=== PATIENT | male | born 1950 | race Caucasian/White ===

== ENCOUNTER → 2017-03-06 17:30 | Outpatient (CLI) | payer MEDICARE | END | disposition home or self-care (01) | LOC: D.LABREF 17:30 | DX: M17.11 Unilateral primary osteoarthritis, right knee (principal); Z11.8 Encounter for screening for other infectious and parasitic diseases ==

== ENCOUNTER 2017-04-05 09:30 | Inpatient (IN) | payer MEDICARE ==
[~2017-04-05] VITALS: Ht 172.7 cm; Wt 102.3 kg
[~2017-04-05 09:30] MED LIST: BAYER CHEWABLE81 MG PO; COREG6.25 MG PO; FELDENE20 MG PO; GLUCOPHAGE1000 MG PO; GLUCOTROL 5 MG T5 MG PO; HYDROCODONE-APA1 TAB PO; LIPITOR80 MG PO; LISINOPRIL10 MG PO; NAPROSYN500 MG PO; NITROSTAT0.4 MG SL; PLAVIX75 MG PO; ZOLOFT25 MG PO
[2017-04-05 09:37] LABS: BASOPHILS 0.6 % (0-2); EOSINOPHILS 3.6 % (0-7); HEMATOCRIT 39.6 % (42.0-54.0); HEMOGLOBIN 13.6 g/dL (13.5-17.5); IMMATURE GRANULOCYTES 0.3 % (0-5); LYMPHOCYTES 24.3 % (15-50); MCHC 34.3 g/dL (31.0-37.0); MCV 87.4 fL (80.0-100.0); MEAN PLATELET VOLUME 11.6 fL (7.4-10.4); NEUTROPHILS 63.2 % (40-80); PLATELET COUNT 164 10x3/uL (130-400); RBC 4.53 10x6/uL (4.20-6.10); RDW 13.4 % (11.5-14.5); WBC 6.8 10x3/uL (4.8-10.8)
[2017-04-05 09:48] LABS: CALC OSMOLALITY 285 mosm/kg (275-300); CALCIUM 9.6 mg/dL (8.5-10.1); CARBON DIOXIDE 30.1 mmol/L (21.0-32.0); CHLORIDE - SERUM 104 mmol/L (98-107); CREATININE - SERUM 0.9 mg/dL (0.6-1.3); GLUCOSE 167 mg/dL (74-106); SODIUM 140 mmol/L (136-145); UREA NITROGEN 20 mg/dL (7-18); eGFR NON AFRICAN AMERICAN 89 mL/min (90-120)
[2017-04-05 09:50] LABS: APTT 30.7 SECONDS (22.8-39.4); INR 1.01 (0.85-1.17); PROTIME 13.1 SECONDS (11.6-15.0)
[2017-04-05 11:14] LABS: APPEARANCE CLEAR (CLEAR); COLOR YELLOW (YELLOW); LEUKOCYTE ESTERASE NEGATIVE (NEGATIVE); NITRITE NEGATIVE (NEGATIVE); PROTEIN NEGATIVE (NEGATIVE)
[2017-04-05 11:15] LABS: BILIRUBIN NEGATIVE (NEGATIVE); GLUCOSE 1000 mg/dL (NEGATIVE); KETONE NEGATIVE (NEGATIVE); UROBILINOGEN NORMAL (NORMAL)
[2017-04-09] VITALS (10 sets, daily range): BP systolic 81–136; BP diastolic 42–82; BMI 34.2
--- NOTE | 2017-04-09 10:39 | NUR ---
PT REC'D FROM RECOVERY ROOM VIA BED, ACCOMPANIED BY PACU NURSETRENT. DROWSY, BUT EASILY AROUSED. DILAUDID DISTILLERY WORKER GENERAL INITIATED, PT AND INSTURCTED ON USE. NO QUESTIONS OR CONCERNS VOICED AT THIS TIME. VSS. 2L O2 VIA NC. WILL TRY TO WEAN OFF OF THIS. LUNG SOUNDS CLEAR AND EQUAL BILAT. HEART RATE AND RHYTHM REGULAR. SINUS HOSSEIN AT 50 VIA CONT. SPO2. DRESSING TO R KNEE CDI. SCD TO L LEG ON AND WORKING. URINAL AND WATER PROVIDED. J LOOP TO PIV IN L HAND CHANGED. PATENT AND NO SIGNS OF REDNESS OR SWELLING. BED LOW, CALL IN REACH, DENIES NEEDS. CPOC.
--- NOTE | 2017-04-09 18:11 | NUR ---
CPM ON TO R LEG AT THIS TIME.
--- NOTE | 2017-04-09 19:00 | NUR ---
PATIENT SLEEPING ON CPM. HOB 20 DEGREES. RR EVEN AND UNLABORED. 0 S/S OF DISTRESS. IV TO LEFT HAND PATENT WITH NO REDNESS OR SWELLING. DRESSING TO RIGHT KNEE CDI. B/A ON PER ORTHO PROTOCOL. SRX2. BED LOW. CALL LIGHT WITHIN REACH.
[2017-04-10 04:00] VITALS: BP 108/54
[2017-04-10 06:16] LABS: HEMATOCRIT 36.7 % (42.0-54.0); HEMOGLOBIN 12.3 g/dL (13.5-17.5); MCH 29.8 pg (26.0-34.0); MCHC 33.5 g/dL (31.0-37.0); MCV 88.9 fL (80.0-100.0); MEAN PLATELET VOLUME 12.1 fL (7.4-10.4); RBC 4.13 10x6/uL (4.20-6.10); WBC 9.7 10x3/uL (4.8-10.8)
[2017-04-10 07:18] VITALS: Ht 172.7 cm; Wt 102.3 kg
--- NOTE | 2017-04-10 07:40 | NUR ---
PT RESTING IN BED WITH AT BEDSIDE. CPM TAKEN OFF BRIEFLY SO THAT PT COULD URINATE AND THEN PLACED BACK ON. TOLD PT THAT CPM CAN COME OFF AT 0845. NO QUESTIONS OR CONCERNS VOICED AT THIS TIME. +2 PEDAL PULSES BILAT. BRISK CAP REFILL TO TOES ON RLE. DRESSING TO R KNEE CDI. NO CURRENT COMPLAINTS OF PAIN. BED LOW, CALL LIGHT IN REACH, DENIES NEEDS. CPOC.
[2017-04-10 08:34] VITALS: BP 126/64
[2017-04-10 12:06] VITALS: BP 128/68
--- NOTE | 2017-04-10 13:54 | NUR ---
* Is the patient Alert and Oriented? Yes 0 * How many steps to enter\exit or inside your home? 2 0 * PCP RIGOBERTO 0 * Pharmacy [facility] 0 * Preadmission Environment Home with Family 0 * ADLs Independent 0 * Equipment None 0 * List name and contact numbers for known caregivers / representatives who currently or will assist patient after discharge: EULA () [phone] 0 Patient Name: DAPHNE BURKETT Admission Status: Elective Accout number: [id number] Admission Date: 04-09-2017 : 1950 Admission Diagnosis:UNILATERAL PRIMARY OSTEOARTHRITIS, RIGHT KNEE Attending: JOSELYN Current LOS: 1 Anticipated DC Date: Planned Disposition: Primary Insurance: [employer] CHOICE PPO [facility] Discharge Planning Comments: CM met with patient and (Talia) to assess discharge planning needs. Patient states that his discharge plan is to return home with his , who will drive him home. He plans to do out patient PT in [place]. I called Priya at [facility] for DME equipment. states that their toilet is elevated already and that he has 2 stairs to enter his home. CM will continue to follow and assist as needed. PCP: Rigoberto Pharmacy: [facility] () [phone] Manager Concrete: Jazmyn Gamez * Community resources currently utilized None 0 * Additional services required to return to the preadmission environment? No 0 * Can the patient safely return to the preadmission environment? Yes 0 * Has this patient been hospitalized within the prior 30 days at any hospital? No 0 Grand Total: 0
--- NOTE | 2017-04-10 15:18 | NUR ---
SEAN spoke with [facility] and they do not take [employer] insurance. I called [facility] [phone] spoke with Etta and they accept [employer]. Order and information faxed to Etta for a CMP and walker. I also called [facility] to set up OP PT and there was not an answer, I left a message for them to call me back. I will be waiting for that call and set up outpatient PT.
--- NOTE | 2017-04-10 17:19 | NUR ---
CPM ON AT THIS TIME. PAIN MEDICATION ADMINISTERED PER KASSY THRASHER. APPRECIATE THIS. TOLERATING WELL. BED LOW, CALL LIGHT IN REACH, DENIES NEEDS. CPOC.
[2017-04-10 19:00] VITALS: BP 105/55
--- NOTE | 2017-04-10 20:00 | NUR ---
TOOK PATIENT OFF OF CPM WITH GHISLAINE MORSE. ADMINISTERED MEDS PER ORDERS. PATIENT DENIES OTHER NEEDS AT THIS TIME. BED IN LOWEST POSITION AND CALL LIGHT WITHIN REACH. ENCOURAGED THE PATIENT TO CALL IF HE HAS FURTHER NEEDS.
[2017-04-11 04:00] VITALS: BP 162/40
[2017-04-11 05:24] LABS: HEMOGLOBIN 11.8 g/dL (13.5-17.5); MCH 29.6 pg (26.0-34.0); MCHC 33.7 g/dL (31.0-37.0); MCV 87.7 fL (80.0-100.0); MEAN PLATELET VOLUME 11.9 fL (7.4-10.4); RBC 3.99 10x6/uL (4.20-6.10); RDW 13.6 % (11.5-14.5); WBC 7.4 10x3/uL (4.8-10.8)
--- NOTE | 2017-04-11 07:54 | NUR ---
PT REC'D FROM KASSY ALEGRE. RESTING IN BED. GHISLAINE BARRON, AT BEDSIDE OBTAINING VS. VSS. CPM TO R LEG AT 40 DEGREES CURRENTLY. NO COMPLAINTS OF PAIN. +2 PEDAL PULSES BILAT. BED LOW, CALL LIGHT IN REACH, DENIES NEEDS. CPOC.
[2017-04-11 08:44] VITALS: BP 124/56
--- NOTE | 2017-04-11 09:02 | NUR ---
Spoke with Etta at [facility] and she stated that she will deliver the patients DME needs to the hospital today.
--- NOTE | 2017-04-11 12:30 | NUR ---
PT SITTING UP IN CHAIR WITH SPOUSE AT SIDE. PT HAS NO VISABLE SIGNS OF PAIN OR DISCOMFORT. CALL LIGHT WITHIN REACH, WILL CONTINUE TO MONITOR.
--- NOTE | 2017-04-11 13:20 | NUR ---
CM met with patient to make sure that the walker was delivered. Walker was delivered and family requesting a shower chair. I called Etta at [facility] to see if insurance would pay for one, she stated that they will not. Etta gave me the melo of $49.00 & $59.00. Told patient the cost and they stated that was fine as long as it was ok for his weight. Etta stated see would check the weight limit on them and deliver the one to the house when she delivered the CPM machine.
[2017-04-11 13:37] VITALS: BP 118/62
[2017-04-11 16:35] VITALS: BP 124/64
--- NOTE | 2017-04-11 17:07 | NUR ---
SEAN spoke with Alysia Cazares apn about discharge, she stated that she would put discharge orders in. Patient is set up with OP PT with [facility] for SundayApril 13 @ 2:00. I spoke with the patient and told them their appointment and explained to them their day and time. They stated understanding. Everything is set up for patient. Waiting on discharge.
--- NOTE | 2017-04-11 20:13 | NUR ---
PATIENT RESTING IN BED ON CPM MACHINE AND DENIES NEEDS AT THIS TIME. BED IN LOWEST POSITION AND CALL LIGHT WITHIN REACH. ENCOURAGED THE PATIENT TO CALL I HE HAS NEEDS.
[2017-04-11 21:27] VITALS: BP 145/71
[2017-04-12 04:00] VITALS: BP 130/70
--- NOTE | 2017-04-12 04:58 | NUR ---
PATIENT REFUSED CPM MACHINE THIS MORNING.
[2017-04-12 07:45] VITALS: BP 165/83
[2017-04-12] MEDS ORDERED: ELIQUIS2.5 MG PO (07:45)
[2017-04-12] MEDS ORDERED: HYDROCODONE-APA1 TAB PO (07:46)
--- NOTE | 2017-04-12 09:23 | NUR ---
PT SEEN THIS AM. NO COMPLAINTS AT PRESENT. STATES KNEE IS SORE BUT OK. DOES NOT WANT PAIN PILL AT THIS TIME. ALOK WRAP REMOVED. DRESSING CLEAN DRY INTACT AND NO DRAINAGE NOTE. WALKED WITH THERAPY. CALL LIGHT IN REACH
--- NOTE | 2017-04-12 10:44 | NUR ---
Patient discharged today with to drive home in personal car with walker and the CPM and shower chair will be delivered today. I spoke with Etta.
== END 2017-04-12 09:50 | disposition home or self-care (01) | DRG 470 ==
LOC: D.MS 04-09 05:11 → D.SDCHOLD 04-09 05:11 → D.MS 04-09 09:40
PROVIDERS: ADMIT Orthopaedic Surgery
PROC: 0SRC0JZ Replacement of Right Knee Joint with Synthetic Substitute, Open Approach (ICD-10-PCS; principal; 2017-04-09 07:30)
DX: M17.11 Unilateral primary osteoarthritis, right knee (principal); E11.9 Type 2 diabetes mellitus without complications; I10 Essential (primary) hypertension; Z95.1 Presence of aortocoronary bypass graft; E66.9 Obesity, unspecified; Z68.34 Body mass index [BMI] 34.0-34.9, adult; F17.200 Nicotine dependence, unspecified, uncomplicated

== ENCOUNTER 2018-09-27 08:55 | Outpatient (CLI) | payer MEDICARE ==
[~2018-09-27] VITALS: Ht 172.7 cm; Wt 109.1 kg
--- NOTE | ~2018-09-27 | HEMODYNAMI ---
PATIENT:DAPHNE BURKETT MEDICAL RECORD: [id number] : [birth year] LOCATION:[facility] ADMISSION DATE: 09/27/18 Generatedon:09/27/201813:32 Patient name: DAPHNE BURKETT Patient #: [id number] SSN: [id number] : 1950 Date of study: 09/27/2018 Page: Of Hemodynamic Procedure Report Patient Data Patient Demographics Procedure consent was obtained First Name: DAPHNE Gender: Male Last Name: KWADWO : 1950 Middle Initial: MARÍA ELENA Age: 67 year(s) Patient #: [id number] Race: SSN: [id number] Additional ID: [id number] Contact details [address]: [address] [place] [place] [address] State: [place] City: [place] Zip code: [address] Past Medical History Allergies Allergen Reaction Date Comments Reported Other allergy 09/27/2018 N Admission Admission Data Admission Date: 09/27/2018 Admission Time: 8:55 Height (in.): 68 BSA: 2.21 (m2) Height (cm.): 172.72 BMI: 36.64 (kg/m2) Weight (lbs.): 241 Weight (kg.): 109.32 Lab Results Lab Result Date: 09/27/2018 Lab Result Time: 0:00 Biochemistry Name Units Result Min Max BUN mg/dl 19 --(----)*- 7 18 Creatinine mg/dl 1 --(--*-)-- 0.6 1.3 CBC Name Units Result Min Max Hemoglobin g/dl 14.7 --(-*--)-- 13.5 17.5 Procedure Procedure Types Cath Procedure Diagnostic Procedure LHC LHC w/Coronaries w/Grafts Sedation Charges Moderate Sedation up to 15 minutes PCI Procedure Coronary Atherectomy Atherectomy w/Stent Coronary Initial Procedure Description Procedure Date Procedure Date: 09/27/2018 Procedure Start Time: 13:10 Procedure End Time: 13:29 Procedure Staff Name Function Jak Mtz MD Performing Physician Irene Bui RT Monitor Elliott Mcgraw RN Nurse Karol Patel RT Scrub Procedure Data Cath Procedure Fluoroscopy Diagnostic fluoroscopy Total fluoroscopy Time: 5.4 time: 5.4 min min Diagnostic fluoroscopy Total fluoroscopy dose: dose: 1219 mGy 1219 mGy Contrast Material Contrast Material Type Amount (ml) Isovue 300 112 Entry Location Entry Primary Successful Side Size Upsize Upsize Entry Closure Succes sful Closure Location (Fr) 1 (Fr) 2 (Fr) Remarks Device Remarks Femoral Right 5 Fr 6 Fr Exoseal artery Short Estimated blood loss: 10 ml Diagnostic catheters Device Type Used For End Catheter Placement MULTIPACK Pigtail 5 Fr Procedure catheter MULTIPACK JL 4.0 5Fr Procedure catheter DIAGNOSTIC AR2 MOD 5 Fr SVG Angiography catheter ([id number]) MULTIPACK 3DRC 5Fr catheter Procedure Complications No complications Procedure Medications Medication Administration Route Dosage 0.9% NaCl I.V. 100 ml/hr Oxygen etCO2 Nasal cannula 2 l/min Heparin Flush Bag added to field 2 bags (1000units/500ml NS) Lidocaine 2% added to field 20 Versed I.V. 2 mg Fentanyl I.V. 100 mcg Versed I.V. 1 mg Fentanyl I.V. 50 mcg Heparin Bolus I.V. 4000 units Versed I.V. 1 mg Fentanyl I.V. 50 mcg Plavix P.O. 75 mg Hemodynamics Rest BSA: 2.21 (m2) HGB: 14.7 (g/dl) O2 Consumption: Estimated: 249.69 (ml/min) O2 Co nsumption indexed: Estimated:112.98 (ml/min/m) Heart Rate: 62 (bpm) Snapshots Pre Cath Intra NCS Post Cath Vital Signs Time Heart Resp SPO2 etCO2 NIBP (mmHg) Rhythm Pain Sedation Rate (ipm) (%) (mmHg) Status Level (bpm) 13:02:13 63 14 100 35.8 174/90(126) NSR 0 (11) 10(A) , No pain 13:06:31 65 14 97 37.3 147/91(126) NSR 0 (11) 10(A) , No pain 13:10:48 72 15 98 30.6 133/82(114) NSR 0 (11) 10(A) , No pain 13:14:55 72 12 98 25.3 152/91(130) NSR 0 (11) 10(A) , No pain 13:19:13 73 12 96 43.3 144/84(110) NSR 0 (11) 9(A) , No pain 13:23:27 72 13 98 44 151/91(125) NSR 0 (11) 9(A) , No pain 13:27:41 70 11 98 41.8 151/90(115) NSR 0 (11) 10(A) , No pain Medications Time Medication Route Dose Verified Delivered Reason Notes Effectiveness by by 12:57:01 0.9% NaCl I.V. 100 Elliott Elliott Per physician ml/hr Lucien Mcgraw RN RN 12:57:11 Oxygen etCO2 2 Elliott Elliott Per physician Nasal l/min Lucien Mcgraw cannula RN RN 12:57:28 Heparin Flush added 2 Elliott Elliott used for Bag to bags Lucien Mcgraw procedure (1000units/500ml RN RN NS) 12:57:42 Lidocaine 2% added 20ml Elliott Elliott for local to vial Lucien Mcrgaw anesthetic field RN RN 13:09:45 Versed I.V. 2 mg Elliott Elliott for sedation Lucien Mcgraw RN RN 13:09:55 Fentanyl I.V. 100 Elliott Elliott for sedation mcg Lucien Mcgraw RN RN 13:15:58 Versed I.V. 1 mg Elliott Elliott for sedation Lucien Mcgraw RN RN 13:16:05 Fentanyl I.V. 50 Elliott Elliott for sedation mcg Lucien Mcgraw RN RN 13:18:07 Heparin Bolus I.V. 4000 Elliott Elliott for units Lucien Mcgraw anticoagulation RN RN 13:19:37 Versed I.V. 1 mg Elliott Elliott for sedation Lucien Mcgraw RN RN 13:19:42 Fentanyl I.V. 50 Elliott Elliott for sedation mcg Lucien Mcgraw RN RN 13:26:19 Plavix P.O. 75 mg Elliott Elliott for Lucien Mcgraw antiplatelet RN RN therapy Procedure Log Time Note 12:46:47 Patient Height : 68 inches 12:46:50 Patient Weight : 241 lbs 12:48:13 Lab Result : Creatinine 1 mg/dl 12:48:13 Lab Result : BUN 19 mg/dl 12:48:13 Lab Result : Hemoglobin 14.7 g/dl 12:48:44 Diagnostic Cath status Elective 12:48:47 Karol Patel RT(R) sent for patient. Start room use. 12:49:01 Time tracking: Regular hours (M-F 7:00 - 5:00) 12:49:12 Plan of Care:Hemodynamics will remain stable., Cardiac rhythm will remain stable., Comfort level will be maintained., Respiratory function will remain adequate., Patient/ family verbilizes understanding of procedure., Procedure tolerated without complication., Recovers from procedure without complications.. 12:49:24 Patient received from Pre/Post Procedure Room to CCL 2 Alert and oriented. Tansferred to table in Supine position. 12:49:27 Warm blankets applied, and tangela hugger turned on for patient comfort. 12:57:01 0.9% NaCl 100 ml/hr I.V. was administered by Elliott Mcgraw RN; Per physician; 12:57:11 Oxygen 2 l/min etCO2 Nasal cannula was administered by lEliott Mcgraw RN; Per physician; 12:57:28 Heparin Flush Bag (1000units/500ml NS) 2 bags added to field was administered by Elliott Mcgraw RN; used for procedure; 12:57:42 Lidocaine 2% 20ml vial added to field was administered by Elliott Mcgraw RN; for local anesthetic; 13:01:02 Vital chart was started 13:02:08 Correct patient and procedure confirmed by team. 13:02:10 Signed procedure consent form obtained from patient. 13:02:11 ECG and BP/O2 sat monitors applied to patient. 13:02:16 Baseline sample Acquired. 13:02:22 Rhythm: sinus rhythm 13:02:24 Full Disclosure recording started 13:07:27 H&P Date Dictated: 09/27/2018 Within 30 days and on chart., H&P Addendum completed by physician on day of procedure. (MUST COMPLETE FOR ALL OUTPATIENTS). 13:07:31 Pre-procedure instructions explained to patient. 13:07:33 Family in waiting room. 13:07:35 Patient NPO since Midnight. 13:07:47 Patient allergic to Other allergyPCN 13:07:57 Is the patient allergic to Iodine/contrast media? No. 13:07:59 Is patient on blood thinner?Yes 13:08:02 ACC The patient was administered the following blood thiners within the last 24 hours: ACCPlavix 13:08:18 Patient diabetic? Yes. 13:08:19 If diabetic: On Metformin? Yes 13:08:22 If on Metformin: Last Dose? 09/26/2018 13:08:53 Dentures? No ? 13:09:03 Use device set Femoral Dx 13:09:04 ACIST Syringe (58044) opened to sterile field. 13:09:04 Bag Decanter (2002S) opened to sterile field. 13:09:05 Medline Cath Pack ([id number]) opened to sterile field. 13:09:05 DIAGNOSTIC WIRE .035 260cm J wire (698527) opened to sterile field. 13:09:25 ACIST Hand Control (54351) opened to sterile field. 13:09:25 ACIST Manifold (99506) opened to sterile field. 13:09:26 DIAGNOSTIC Multipack 5Fr catheter set (BM7412) opened to sterile field. 13:09:27 Tegaderm 4 x 4 (1626W) opened to sterile field. 13:09:28 SHEATH 5FR [place] (QBG192) opened to sterile field. 13:09:45 Versed 2 mg I.V. was administered by Elliott Mcgraw RN; for sedation; 13:09:50 Lab results completed and on chart. 13:09:52 Right groin area was prepped with chlora-prep and draped in sterile fashion 13:09:54 Alarms reviewed by R. N. 13:09:54 Sharps counted by scrub and verified by R.N. 13:09:55 Fentanyl 100 mcg I.V. was administered by Elliott Mcgraw RN; for sedation; 13:09:55 Physician paged 13:09:56 Physician arrived 13:09:56 --------ALL STOP TIME OUT------ 13:09:57 Final Timeout: patient, procedure, and site verified with staff and physician. All members of the team are in agreement. 13:09:59 Right groin site verified by team. 13:10:02 Physical assessment completed. ASA score P 2 - A patient with mild systemic disease as per Jak Mtz MD. 13:10:05 Sedation plan: IV Moderate Sedation Medication:Versed, Fentanyl 13:10:15 Procedure started. 13:10:19 Local anesthetic to right femoral artery with Lidocaine 2% by Jak Mtz MD.INITIAL ACCESS ONLY 13:10:28 A 5 Fr sheath was inserted into the Right Femoral artery 13:10:57 A MULTIPACK Pigtail 5 Fr catheter was advanced over the wire and used for Procedure. 13:11:09 EF : 35 % 13:11:10 Catheter removed. 13:11:20 A MULTIPACK JL 4.0 5Fr catheter was advanced over the wire and used for Procedure. 13:11:24 LCA angiography performed. 13:11:28 Catheter removed. 13:12:01 A DIAGNOSTIC AR2 MOD 5 Fr catheter ([id number]) was advanced over the wire and used for SVG Angiography. 13:12:08 SVG to Circ angiography performed. 13:12:18 SVG to OM angiography performed. 13:12:24 RCA angiography performed. 13:14:50 Catheter removed. 13:15:14 A MULTIPACK 3DRC 5Fr catheter was advanced over the wire and used for . 13:15:21 SVG to LAD angiography performed. 13:15:23 MORALEZ to LAD angiography performed. 13:15:27 Catheter removed. 13:15:58 Versed 1 mg I.V. was administered by Elliott Mcgraw RN; for sedation; 13:16:05 Fentanyl 50 mcg I.V. was administered by Elliott Mcgraw RN; for sedation; 13:16:53 SHEATH 6FR [place] (BOW723) opened to sterile field. 13:16:54 INFLATOR Merit BasixCompak (NI9740) opened to sterile field. 13:16:55 CHOICE PT Extra Support 182cm wire ([id number]) opened to sterile field. 13:16:56 LASER ELCA 0.9 Rx atherectomy catheter (003899) opened to sterile field. 13:16:56 GUIDE 6FR AR 2.0 SH catheter ([id number]) opened to sterile field. 13:17:03 Proceeding to intervention. 13:17:11 Sheath upsized to a 6 Fr Short. 13:17:21 6 Fr AR2SH guide catheter was inserted over the wire 13:17:29 choice wire advanced. 13:17:44 Wire advanced across lesion. 13:18:07 Heparin Bolus 4000 units I.V. was administered by Elliott Mcgraw RN; for anticoagulation; 13:18:07 Laser pass to mRCA with Fluence of 80 and Rate of 40. 13:19:37 Versed 1 mg I.V. was administered by Elliott Mcgraw RN; for sedation; 13:19:42 Fentanyl 50 mcg I.V. was administered by Elliott Mcgraw RN; for sedation; 13:20:51 Laser catheter removed. 13:22:14 Inflate balloon Inflation number: 1 A EUPHORA 4.0 x 20 Balloon ([id number]) was prepped and advanced across the Mid RCA, then inflated to 17 KRISTY for 0:08 (min:sec). 13:23:34 Balloon removed over the wire. 13:23:55 Place stent Inflation Number: 2 A DALE RX 4.0 x 18 stent ([id number]) was prepped and advanced across the Mid RCA. The stent was deployed at 21 KRISTY for 0:07 (min:sec). 13:25:33 Wire removed. 13:25:34 Guide catheter removed. 13:25:40 EXOSEAL 6Fr (EX600) opened to sterile field. 13:25:57 Sheath removed intact; hemostasis achieved with Exoseal to the Right Femoral artery. 13:26:00 Procedure ended.(Physican Out) 13:26:15 Fluoroscopy time 05.40 minutes. 13:26:19 Plavix 75 mg P.O. was administered by Elliott Mcgraw RN; for antiplatelet therapy; 13::23 Fluoroscopy dose: 1219 mGy 13:26:23 Flurop Dose total: 1219 13:26:28 Contrast amount:Isovue 300 112ml. 13:26:30 Sharps counted by scrub and verified by R.N. 13:26:31 Insertion/operative site no bleeding no hematoma. 13:26:35 Post-op/insertion site Right Femoral artery dressed using a 4 x 4 and Tegaderm. 13:26:47 Post right femoral artery:stable 13:26:54 Post-procedure physical assessment completed. ASA score P 2 - A patient with mild systemic disease as per Jak Mtz MD. 13:27:10 Post procedure rhythm: sinus rhythm 13:27:13 Estimated blood loss: 10 ml 13:27:15 Post procedure instruction explained to patient.Patient verbalizes understanding. 13:28:20 Procedure type changed to Cath procedure, Diagnostic procedure, LHC, LHC w/Coronaries w/Grafts, Sedation Charges, Moderate Sedation up to 15 minutes, PCI procedure, Coronary Atherectomy, Atherectomy w/Stent Coronary Initial 13:28:23 Procedure and supply charges have been captured, reviewed, submitted and are correct. 13:28:57 Procedure Complication : No complications 13:29:00 Vital chart was stopped 13:29:00 See physician's report for complete and final results. 13:29:02 Report given to Pre/Post Procedure Room. 13:29:05 Patient transfered to Pre/Post Procedure Room with Stretcher. 13:29:07 Procedure ended. 13:29:07 Full Disclosure recording stopped 13:29:14 End room use (Document Last) 13:29:19 ACC-PCI Only Patient was given prescriptions, or instructed by Jak Mtz MD to start/continue the following medications upon discharge: Plavix Intervention Summary Intervention Notes Time ActionType Lesion and Equipment Used Action# Pressure Duration Attributes 13:22:14 Inflate Mid RCA EUPHORA 4.0 x 1 17 00:08 balloon 20 Balloon ([id number]) 13:23:55 Place stent Mid RCA DALE RX 4.0 x 2 21 00:07 18 stent ([id number]) Device Usage Item Name Manufacture Quantity Catalog Number Hospital Part Current M inimal Lot# / Charge Number Stock Stock Serial# Code ACIST Syringe Acist 1 17448 016830 886137 612169 2 0 (66578) Medical Systems Inc Bag Decanter Microtek 1 2001S 066813 22448 309278 5 () Medical Inc. Medline Cath Medline 1 [id number] 341512 13701 282067 5 Pack ([id number]) DIAGNOSTIC [facility] [place] 1 262066 942984 237381 772239 3 0 WIRE .035 260cm J wire (678714) MULTIPACK Cardinal 1 320245 5 Pigtail 5 Fr Health catheter ACIST Hand Acist 1 25845 900665 472691 491179 5 Control Medical (12952) Systems Inc ACIST Manifold Acist 1 49715 120223 235127 508782 5 (52204) Medical Systems Inc DIAGNOSTIC Cardinal 1 [id number] 142759 86622 160136 3 0 Multipack 5Fr Health catheter set (VE4870) Tegaderm 4 x 4 3M 1 1626W 321411 143496 293829 5 (1626W) SHEATH 5FR Terumo 1 SOR808 064970 543246 045002 5 [place] (XRF494) MULTIPACK JL Cardinal 1 121287 5 4.0 5Fr Health catheter DIAGNOSTIC AR2 Cardinal 1 [id number] 509735 280602 645136 2 0 MOD 5 Fr Health catheter ([id number]) MULTIPACK 3DRC Cardinal 1 952305 5 5Fr catheter Health SHEATH 6FR Terumo 1 AXJ698 493608 994611 290092 4 0 [place] (MNQ723) INFLATOR Merit Merit 1 FK0513 886309 984335 633075 1 5 [facility] (WU2671) CHOICE PT Evangeline 1 [id number] 759652 353121 580942 5 Extra Support Scientific 182cm wire ([id number]) LASER ELCA 0.9 Toribio 1 110-004 147555 287185 554872 5 Rx atherectomy Healthcare catheter (697100) (818892) GUIDE 6FR AR Medtronic 1 [id number] 997886 87156 068209 1 2.0 SH catheter ([id number]) EUPHORA 4.0 x Medtronic 1 [id number] 812358 504048 041663 5 [id number] 20 Balloon ([id number]) DALE RX 4.0 x Medtronic 1 [id number] 504828 6532858 139838 5 [id number] 18 stent ([id number]) EXOSEAL 6Fr Cardinal 1 EX600 060828 974113 466609 1 0 (EX600) Health Signature Audit [place] Stage Time Signature Unsigned Intra-Procedure 09/27/2018 Irene Bui 1:32:09 PM RT(R) Signatures Monitor : Irene Bui Signature : RT Date : Time : [facility] [address] [place] [address]
--- NOTE | ~2018-09-27 | OP ---
PATIENT NAME: DAPHNE BURKETT MEDICAL RECORD: [id number] :[birth year] LOCATION:D.CAT ADMISSION DATE: SURGEON: SKY STOUT MD DATE OF OPERATION: 09/27/2018 DATE OF SERVICE: 09/27/2018 PROCEDURES: 1. Laser atherectomy RCA. 2. PTCA stent RCA. 3. Left heart catheterization. 4. Selective coronary angiography. 5. Vein graft angiography. 6. MORALEZ angiography. 7. Left ventriculogram. INDICATION: Angina and coronary artery disease. PROCEDURE IN DETAIL: After informed consent was obtained and after a detailed explanation of risks, benefits as well as alternative therapies, the patient elected to proceed with angiogram and angioplasty. The right femoral area was prepped and draped in normal sterile fashion. Right femoral artery was cannulated via modified Seldinger technique with placement of 6-Tristanian sheath. All catheters exchanged through this sheath. FINDINGS: Left ventriculogram was performed in a standard 30-degree ALMAGUER view, reveals global hypokinesis throughout all segments. Overall ejection fraction is 35% to 40%. SELECTIVE CORONARY ANGIOGRAPHY: 1. Left main is with no significant angiographic disease. 2. Left anterior descending is totally occluded. 3. Left circumflex is totally occluded. 4. MORALEZ to the LAD is widely patent. Distal LAD is widely patent. 5. Vein graft to the circumflex in a skipped fashion OM1 and OM2 is widely patent. Distal circumflex is widely patent. 6. The right coronary has previously placed stents with 95% in-stent restenosis in the mid vessel. PTCA STENT OF THE RCA: The stent used to have a laser atherectomy, PTCA stent of RCA, the laser atherectomy catheter was 0.9. Catheter multiple passes were made to 80/40. We then stented this with a 4.0 x 18 [place] stent. Result was 0% residual stenosis. OVERALL IMPRESSION: Successful percutaneous transluminal coronary angioplasty stent, laser atherectomy of the right coronary artery going from 95% initial stenosis to 0% residual. TRANSINT:[id number] Voice Confirmation ID: [id number] DOCUMENT ID: [id number] OPERATIVE REPORT [id number] DAPHNE BURKETT SKY STOUT MD at 1327 CC: [id number] DICTATION DATE: 09/27/18 1329 TALENT ACQUISITION PROJECT MANAGER: 09/27/18 1531 DEP CLI 09/27/18 [facility] [address] [id number]
[~2018-09-27 08:55] MED LIST changes: +ELIQUIS2.5 MG PO
[2018-09-27 09:28] VITALS: BP 168/84; Ht 172.7 cm; Wt 109.1 kg
[2018-09-27 09:41] LABS: BASOPHILS 0.7 % (0-2); EOSINOPHILS 3.1 % (0-7); HEMATOCRIT 42.2 % (42.0-54.0); HEMOGLOBIN 14.7 g/dL (13.5-17.5); IMMATURE GRANULOCYTES 0.2 % (0-5); LYMPHOCYTES 23.3 % (15-50); MCH 29.7 pg (26.0-34.0); MCHC 34.8 g/dL (31.0-37.0); MCV 85.3 fL (80.0-100.0); MEAN PLATELET VOLUME 11.7 fL (7.4-10.4); MONOCYTES 11.6 % (2-11); NEUTROPHILS 61.1 % (40-80); PLATELET COUNT 182 10x3/uL (130-400); RBC 4.95 10x6/uL (4.20-6.10); RDW 13.4 % (11.5-14.5); WBC 6.1 10x3/uL (4.8-10.8)
[2018-09-27 09:50] LABS: CALC OSMOLALITY 284 mosm/kg (275-300); CALCIUM 9.2 mg/dL (8.5-10.1); CARBON DIOXIDE 31.3 mmol/L (21.0-32.0); CHLORIDE - SERUM 100 mmol/L (98-107); GLUCOSE 219 mg/dL (74-106); POTASSIUM - SERUM 4.6 mmol/L (3.5-5.1); SODIUM 138 mmol/L (136-145); UREA NITROGEN 19 mg/dL (7-18); eGFR NON AFRICAN AMERICAN 79 mL/min (90-120)
== END 2018-09-27 17:20 | disposition home or self-care (01) ==
LOC: D.CATH 08:55
PROVIDERS: Internal Medicine Interventional Cardiology
DX: I25.119 Atherosclerotic heart disease of native coronary artery with unspecified angina pectoris (principal); T82.855A Stenosis of coronary artery stent, initial encounter; Z95.1 Presence of aortocoronary bypass graft; Z01.812 Encounter for preprocedural laboratory examination
CPT/HCPCS: 93459; C9602

== ENCOUNTER → 2019-12-24 13:44 | Outpatient (CLI) | payer MEDICARE ==
[2018-09-27 09:28] VITALS: BMI 36.5
--- NOTE | ~2019-12-24 | EC ---
PATIENT:DAPHNE BURKETT DATE OF SERVICE: 12/24/19 SEX: M MEDICAL RECORD: [id number] DATE OF : 48 [facility]GE OF PATIENT: 69 ADMISSION DATE: 12/24/19 REFERRING PHYSICIAN: INTERPRETING PHYSICIAN: SKY MTZ MD ECHOCARDIOGRAM REPORT ECHO CHARGES 4 ECHO COMPLETE Date: 12/24/19 CLINICAL DIAGNOSIS: CAD/AORTIC STENOSIS/CARDIOMYOPATHY, HX OF MR/TR ECHOCARDIOGRAPHIC MEASUREMENTS (adult normal given) AC root (d.<3.7cm) 2.9 cm LV Septum d (<1.2 cm> 1.2 cm Valve Excursion 1.3 cm LV Septum (systole) 1.4 cm Left Atria (s.<4.0cm> 4.0 cm LVPW d(<1.2cm) 1.6 cm RV (d.<2.3cm) 3.7 cm LVPW (sytole) 1.8 cm LV diastole(<5.6CM) 4.7 cm MV E-F(>70mm/sec) cm LV systole 3.6 cm LVOT Diameter 1.7 cm MV exc.(>10mm) 1.6 cm Est.ejection fraction (50-75%) % DOPPLER: LVIT cm/sec A 86.0 cm/sec E 61.0 cm/sec LA cm/sec RVSP 16 mmHg LVOT 130 cm/sec AOP1/2T m/s Asc. Ao 385 cm/sec RVOT 107 cm/sec RA cm/sec PA 146 cm/sec AV Gradient Peak 59.16mmHg AV Mean 41.32mmHg AV Area 0.6 cm MV Gradient Peak 4.19 mmHg MV Mean 1.90 mmHg MV Area cm COMMENTS: Emergency Department: June SWIFT Hadoop Architect: 1 Dr. Mtz TAPE# PACS Pericardial Effusion N DATE OF SERVICE: 12/24/2019 FINDINGS: 1. Left ventricular chamber size is within normal limits. Left ventricular systolic function is normal at 55%. 2. Left atrium is upper limits of normal at 4.0 cm. Right atrium and right ventricular chamber sizes are within normal limits. 3. Valvular structures: Aortic valve demonstrates [id number]-ol-ihbfps calcific aortic stenosis, valve area calculates 0.6 cm-squared with gradient of 60 mm ECHOCARDIOGRAM REPORT [id number] DAPHNE BURKETT across the valve. The remaining valvular structures have normal structure and motion. 4. Doppler interrogation elsewise reveals mild mitral regurgitation, no other valvular insufficiency or stenosis. 5. No evidence of pericardial effusion or left ventricular thrombus. TRANSINT:[id number] Voice Confirmation ID: [id number] DOCUMENT ID: [id number] SKY MTZ MD CC: [id number] DICTATION DATE: 12/24/19 1430 FAMILY MEDIATOR: 12/24/19 2045 REG [facility] [address] [place] [address]
== END | disposition home or self-care (01) ==
LOC: D.HCCECHO 13:44
PROVIDERS: ATTEND Internal Medicine Interventional Cardiology
DX: I25.10 Atherosclerotic heart disease of native coronary artery without angina pectoris (principal)

== ENCOUNTER → 2020-01-07 09:29 | Outpatient (CLI) | payer MEDICARE ==
[2018-09-27 09:28] VITALS: BMI 36.5
== END | disposition home or self-care (01) ==
LOC: D.HCCARDIO 09:29
PROVIDERS: ATTEND Internal Medicine Cardiovascular Disease
DX: I25.10 Atherosclerotic heart disease of native coronary artery without angina pectoris (principal)

== ENCOUNTER 2020-01-20 08:05 | Outpatient (CLI) | payer MEDICARE ==
[~2020-01-20] VITALS: Ht 172.7 cm; Wt 110.0 kg
--- NOTE | ~2020-01-20 | HEMODYNAMI ---
PATIENT:DAPHNE BURKETT MEDICAL RECORD: [id number] : 48 LOCATION:D.CAT ADMISSION DATE: 01/20/20 Generatedon:01/20/202011:15 Patient name: DAPHNE BURKETT Patient #: [id number] SSN: [id number] : 1950 Date of study: 01/20/2020 Page: Of Hemodynamic Procedure Report Patient Data Patient Demographics Procedure consent was obtained First Name: DAPHNE Gender: Male Last Name: KWADWO : 1950 Middle Initial: MARÍA ELENA Age: 69 year(s) Patient #: [id number] Race: SSN: [id number] Additional ID: [id number] Contact details [address]: [address] [place] [address] State: [place] City: [place] Zip code: [address] Past Medical History Allergies Allergen Reaction Date Comments Reported Other allergy 09/27/[address] [facility] Admission Admission Data Admission Date: 01/20/2020 Admission Time: 8:05 Arrival Date: 01/20/2020 Arrival Time: 0:00 Admit Source: Other Insurance Payor: Medicare [facility] #: [id number] Height (in.): 67.72 BSA: 2.21 (m2) Height (cm.): 172 BMI: 37.18 (kg/m2) Weight (lbs.): 242.51 Weight (kg.): 110 Lab Results Lab Result Date: 01/20/2020 Lab Result Time: 0:00 Biochemistry Name Units Result Min Max BUN mg/dl 22 --(----)-* 7 18 Creatinine mg/dl 1.1 --(--*-)-- 0.6 1.3 eGFR ml/min 70.12260 *-(----)-- 90 120 NONAFRICAN CBC Name Units Result Min Max Hemoglobin g/dl 13.6 --(*---)-- 13.5 17.5 Procedure Procedure Types Cath Procedure Diagnostic Procedure LHC LHC w/Coronaries w/Grafts FFR/IVUS FFR Initial FFR Additional Sedation Charges Moderate Sedation up to 30 minutes PCI Procedure Coronary Stent Coronary Stent Initial x2 Hemochron ACT Test Procedure Description Procedure Date Procedure Date: 01/20/2020 Procedure Start Time: 10:43 Procedure End Time: 11:11 Procedure Staff Name Function Jak Mtz MD Performing Physician Karol Patel RT Monitor Irene Bui RT Scrub Toyin Schneider RN Nurse Jesus Mcallister RN Analytical Lead Indication Angina Procedure Data Cath Procedure Fluoroscopy Diagnostic fluoroscopy Total fluoroscopy Time: 8.7 time: 8.7 min min Diagnostic fluoroscopy Total fluoroscopy dose: dose: 1791 mGy 1791 mGy Contrast Material Contrast Material Type Amount (ml) Isovue 300 111 Entry Location Entry Primary Successful Side Size Upsize Upsize Entry Closure Succes sful Closure Location (Fr) 1 (Fr) 2 (Fr) Remarks Device Remarks Femoral Right 5 Fr 6 Fr Exoseal artery Short Estimated blood loss: 5 ml Diagnostic catheters Device Type Used For End Catheter Placement MULTIPACK Pigtail 5 Fr LV Angiography catheter MULTIPACK JL 4.0 5Fr Left Coronary catheter Angiography MULTIPACK 3DRC 5Fr Right Coronary catheter Angiography Procedure Complications No complications Procedure Medications Medication Administration Route Dosage 0.9% NaCl I.V. 100 ml/hr Oxygen etCO2 Nasal cannula 2 l/min Lidocaine 2% added to field 20 Heparin Flush Bag added to field 2 bags (1000units/500ml NS) Plavix P.O. 75 mg Versed I.V. 2 mg Fentanyl I.V. 100 mcg Versed I.V. 1 mg Fentanyl I.V. 50 mcg Fentanyl I.V. 50 mcg Heparin Bolus I.V. 4000 units Fentanyl I.V. 100 mcg Versed I.V. 1 mg Hemodynamics Rest BSA: 2.21 (m2) HGB: 13.6 (g/dl) O2 Consumption: Estimated: 256.47 (ml/min) O2 Co nsumption indexed: Estimated:116.05 (ml/min/m) Heart Rate: 71 (bpm) Pressure Samples Time Site Value (mmHg) Purpose Heart Use Rate(bpm) 10:46 LV 178/14,20 Snapshot 76 10:46 AO 122/74(96) Pullback 84 10:46 LV 163/20,22 Pullback 84 Gradients Valve Time Site 1 Site 2 Mean SEP/DFP Peak To Heart Use (mmHg) (sec/min) Peak Rate (mmHg) (bpm) Aortic 10:46 LV AO 30 24 41 84 163/20,22 122/74(96) Calculations Valve P-P Mean Valve Index Valve Source Name Gradient Area Flow (cm2) Aortic 41 30 41 30 Snapshots Pre Cath Intra NCS Post Cath Vital Signs Time Heart Resp SPO2 etCO2 NIBP (mmHg) Rhythm Pain Sedation Rate (ipm) (%) (mmHg) Status Level (bpm) 10:28:55 65 15 98 35.9 176/96(134) NSR 0 (11) 10(A) , No pain 10:33:17 66 15 95 39.7 153/81(105) NSR 0 (11) 10(A) , No pain 10:37:33 71 14 93 37.4 140/82(108) NSR 0 (11) 10(A) , No pain 10:41:41 73 14 95 41.9 156/91(114) NSR 0 (11) 10(A) , No pain 10:45:55 99 11 99 39.6 144/85(104) NSR 0 (11) 9(A) , No pain 10:50:05 74 11 99 40.4 153/89(120) NSR 0 (11) 9(A) , No pain 10:54:17 75 13 99 39.6 148/92(113) NSR 0 (11) 9(A) , No pain 10:58:27 77 11 100 38.1 166/92(118) NSR 0 (11) 9(A) , No pain 11:02:43 75 11 100 34.4 169/98(112) NSR 0 (11) 9(A) , No pain 11:06:59 77 12 100 40.4 167/96(118) NSR 0 (11) 10(A) , No pain 11:11:15 76 11 99 41.1 166/94(123) NSR 0 (11) 10(A) , No pain Medications Time Medication Route Dose Verified Delivered Reason Notes Effectiveness by by 10:27:16 Plavix P.O. 75 mg Jak Toyin for Bibi Schneider antiplatelet RN therapy 10:29:08 0.9% NaCl I.V. 100 Jak Garaya used for ml/hr Bibi Schneider oil heat technician 10:29:13 Oxygen etCO2 2 Jak Toyin used for Nasal l/min Bibi Schnedier procedure cannula RN 10:29:18 Lidocaine 2% added 20ml Jak Benedict for local to vial Bibi Mtz MD anesthetic field 10:29:58 Heparin Flush added 2 Jak Benedict used for Bag to bags Bibi Mtz MD procedure (1000units/500ml field NS) 10:37:53 Versed I.V. 2 mg Jak Toyin for sedation Bibi Schneider RN 10:38:00 Fentanyl I.V. 100 Jak Buffie for sedation mcg Bibi Mcallister RN 10:45:02 Versed I.V. 1 mg Jak Buffie for sedation Bibi Mcallister RN 10:45:07 Fentanyl I.V. 50 Jak Buffie for sedation mcg Bibi Mcallister RN 10:51:44 Heparin Bolus I.V. 4000 Jak Buffie for verif ied units Bibi Mcallister RN anticoagulation with dr mtz 10:55:47 Fentanyl I.V. 50 Jak Buffie for sedation mcg Bibi Mcallister RN 11:03:06 Fentanyl I.V. 100 Jak Buffie for sedation mcg Bibi Mcallister RN 11:03:17 Versed I.V. 1 mg Jak Buffie for sedation Bibi Mcallister RN Procedure Log Time Note 9:21:01 Diagnostic Cath Status : Elective 9:21:33 Indication : Angina 9:21:48 Informed consent obtained and on chart 9:24:03 Admit Source: Other 9:24:06 Arrival Date: 01/20/2020 12:00:00 AM 9:33:59 Insurance Payor : Medicare 9:34:15 Patient Height : 67.72 inches 9:34:18 Patient Weight : 242.51 lbs 9:46:12 Lab Result : BUN 22 mg/dl 9:46:12 Lab Result : eGFR NONAFRICAN 70.21924 ml/min 9:46:12 Lab Result : Hemoglobin 13.6 g/dl 9:46:12 Lab Result : Creatinine 1.1 mg/dl 9:56:48 Procedure Status Elective Heart Cath (OP). 9:56:52 Irene Bui RT(R) sent for patient. Start room use. 9:56:52 Time tracking: Regular hours (M-F 7:00 - 5:00) 9:56:57 Plan of Care:Hemodynamics will remain stable., Cardiac rhythm will remain stable., Comfort level will be maintained., Respiratory function will remain adequate., Patient/ family verbilizes understanding of procedure., Procedure tolerated without complication., Recovers from procedure without complications.. 10:07:07 SCAI program not responding 10:08:42 2) 60-89 Mildly reduced kidney function, and other findings (as for stage 1) point to kidney disease. 10:09:10 Maximum allowable contrast dose (3.7 X eGFR X 0.75)194 ml. 10:14:07 Patient received from Pre/Post Procedure Room to CCL 2 Alert and oriented. Tansferred to table in Supine position. 10:14:08 Warm blankets applied, and tangela hugger turned on for patient comfort. 10:14:08 Correct patient and procedure confirmed by team. 10:14:09 ECG and BP/O2 sat monitors applied to patient. 10:27:16 Plavix 75 mg P.O. was administered by Toyin Schneider RN; for antiplatelet therapy; Verbal order read back and verified. 10:27:47 Vital chart was started 10:27:48 Baseline sample Acquired. 10:27:51 Rhythm: sinus rhythm 10:27:52 Full Disclosure recording started 10:27:56 H&P Date Dictated: 01/20/2020 Within 30 days and on chart., H&P Addendum completed by physician on day of procedure. (MUST COMPLETE FOR ALL OUTPATIENTS). 10:27:58 Pre-procedure instructions explained to patient. 10:27:58 Pre-op teaching completed and patient verbalized understanding. 10:28:07 Family in patients room. 10:28:08 Patient NPO since Midnight. 10:28:15 Is the patient allergic to Iodine/contrast media? No. 10:28:16 Was the patient premedicated? Yes 10:28:18 Is patient on blood thinner?Yes 10:28:21 ACC The patient was administered the following blood thiners within the last 24 hours: ACCPlavix 10:28:23 Patient diabetic? Yes. 10:28:28 If diabetic: On Metformin? Yes 10:28:31 If on Metformin: Last Dose? 01/19/2020 10:28:35 Previous problem with sedation/anesthesia? No ? 10:28:36 Snore? Yes 10:28:37 Sleep apnea? No 10:28:38 Deviated septum? No 10:28:38 Opens mouth fully? Yes 10:28:39 Sticks out tongue? Yes 10:28:41 Airway obstruction? No ? 10:28:44 Dentures? No ? 10:28:51 Pre procedure: right dorsailis pedis pulse 2+ Normal; easily identifiable; not easily obliterated 10:28:53 Pre procedure: left dorsailis pedis pulse 2+ Normal; easily identifiable; not easily obliterated 10:28:56 Patient pain scale 0/10 ?. 10:29:08 0.9% NaCl 100 ml/hr I.V. was administered by Toyin Schneider RN; used for procedure; Verbal order read back and verified. 10:29:09 IV patent on arrival in right forearm with 0.9% NaCl at [facility]. 10:29:12 Lab results completed and on chart. 10:29:13 Oxygen 2 l/min etCO2 Nasal cannula was administered by Toyin Schneider RN; used for procedure; Verbal order read back and verified. 10:29:18 Lidocaine 2% 20ml vial added to field was administered by Jak Mtz MD; for local anesthetic; Verbal order read back and verified. 10:29:18 Stress Test: yes; abnormal ? 10:29:58 Heparin Flush Bag (1000units/500ml NS) 2 bags added to field was administered by Jak Mtz MD; used for procedure; Verbal order read back and verified. 10:31:14 Right groin area was prepped with chlora-prep and draped in sterile fashion 10:31:15 Alarms reviewed by R. N. 10:31:16 Sharps counted by scrub and verified by R.N. 10:36:29 Physician arrived 10:36:30 --------ALL STOP TIME OUT------ 10:36:30 Final Timeout: patient, procedure, and site verified with staff and physician. All members of the team are in agreement. 10:36:32 Right groin site verified by team. 10:36:37 Fire Safety Assessment: A--An alcohol-based skin anteseptic being used preoperatively., C--Open oxygen or nitrous oxide is being used., D--An ESU, laser, or fiber-optic light is being used. 10:36:40 Physical assessment completed. ASA score P 2 - A patient with mild systemic disease as per Jak Mtz MD. 10:36:44 Sedation plan: IV Moderate Sedation Medication:Versed, Fentanyl 10:37:10 Use device set Femoral Dx 10:37:11 ACIST Syringe (72163) opened to sterile field. 10:37:12 Bag Decanter (2002S) opened to sterile field. 10:37:12 Medline Cath Pack ([id number]) opened to sterile field. 10:37:13 ACIST Hand Control (51312) opened to sterile field. 10:37:13 ACIST Manifold (68724) opened to sterile field. 10:37:14 DIAGNOSTIC Multipack 5Fr catheter set (VW1667) opened to sterile field. 10:37:14 Tegaderm 4 x 4 (1626W) opened to sterile field. 10:37:16 SHEATH 5FR Purchase (GYH038) opened to sterile field. 10:37:16 EMERALD Guide Wire (946-007) opened to sterile field. 10:37:53 Versed 2 mg I.V. was administered by Toyin Schneider RN; for sedation; Verbal order read back and verified. 10:38:00 Fentanyl 100 mcg I.V. was administered by Jesus Mcallister RN; for sedation; Verbal order read back and verified. 10:43:26 Procedure started. 10:43:30 Local anesthetic to right femoral artery with Lidocaine 2% by Jak Mtz MD.INITIAL ACCESS ONLY 10:43:38 A 5 Fr sheath was inserted into the Right Femoral artery 10:45:02 Versed 1 mg I.V. was administered by Jesus Mcallister RN; for sedation; Verbal order read back and verified. 10:45:07 Fentanyl 50 mcg I.V. was administered by Jesus Mcallister RN; for sedation; Verbal order read back and verified. 10:45:09 A MULTIPACK Pigtail 5 Fr catheter was advanced over the wire and used for LV Angiography. 10:46:13 LV hemodynamics recorded. 10:46:14 LV gram done using ALMAGUER 10:46:16 Injector settings: Ml/sec: 5, Volume: 15, 10:46:43 EF : 60 % 10:46:47 Catheter removed. 10:46:51 A MULTIPACK JL 4.0 5Fr catheter was advanced over the wire and used for Left Coronary Angiography. 10:47:13 LCA angiography performed. 10:47:15 Injector settings: Ml/sec: 3, Volume: 6, 10:47:32 Catheter removed. 10:47:39 A MULTIPACK 3DRC 5Fr catheter was advanced over the wire and used for Right Coronary Angiography. 10:48:05 MORALEZ angiography performed. 10:49:19 SVG to Circ angiography performed. 10:49:27 RCA angiography performed. 10:49:30 Injector settings: Ml/sec: 3, Volume: 6, 10:49:41 Catheter removed. 10:50:22 Proceeding to intervention. 10:50:57 GUIDE 6FR AR 2.0 catheter ([id number]) opened to sterile field. 10:50:58 Ventura Verrata Plus pressure wire (04553H) opened to sterile field. 10:50:59 INFLATOR Merit BasixCompak (RL1228) opened to sterile field. 10:51:00 SHEATH 6FR Purchase (AZI644) opened to sterile field. 10:51:32 Sheath upsized to a 6 Fr Short. 10:51:41 6 Fr ar 2 guide catheter was inserted over the wire 10:51:44 Heparin Bolus 4000 units I.V. was administered by Jesus Mcallister RN; for anticoagulation; verified with dr mtz Verbal order read back and verified. 10:51:57 FFR/IFR wire advanced. 10:52:09 Baseline FFR 1. 10:52:11 Wire advanced across lesion. 10:53:16 Circ lesion measured at 70 with IFR 10:55:18 Place stent Inflation Number: 1 A DALE RX 4.0 x 22 stent ([id number]) was prepped and advanced across the Aorta Left -> Mid CX 70. The stent was deployed at 23 KRISTY for 0:10 (min:sec) 0. 10:55:47 Fentanyl 50 mcg I.V. was administered by Jesus Mcallister RN; for sedation; Verbal order read back and verified. 10:56:13 Stent catheter was removed intact over wire. 10:56:23 Wire redirected to rca. 10:57:00 Baseline FFR 1. 10:58:34 mRCA lesion measured at 0.98 with IFR 10:59:15 0.98 false reading; changing guides 10:59:33 GUIDE 6FR AR 1.0 SH catheter ([id number]) opened to sterile field. 10:59:47 Wire removed. 10:59:48 Guide catheter removed. 10:59:57 6 Fr ar 1 sh guide catheter was inserted over the wire 11:00:00 FFR/IFR wire advanced. 11:00:03 Baseline FFR 1. 11:00:33 Wire advanced across lesion. 11::23 Faulty IFR wire; opening additional wire 11::34 Ventura Verrata Plus pressure wire (27699D) opened to sterile field. 11::52 Wire removed. 11::57 FFR/IFR wire advanced. 11:02:58 Baseline FFR 1. 11:03:06 Fentanyl 100 mcg I.V. was administered by Jesus Mcallister RN; for sedation; Verbal order read back and verified. 11:03:17 Versed 1 mg I.V. was administered by Jesus Mcallister RN; for sedation; Verbal order read back and verified. 11:03:33 mRCA lesion measured at 0.60 with IFR 11::48 ACT drawn and resulted at 139 seconds. (normal therapeutic range 180-240 seconds). 11:04:59 Place stent Inflation Number: 1 A DALE RX 3.5 x 30 stent ([id number]) was prepped and advanced across the Mid RCA 70. The stent was deployed at 21 KRISTY for 0:10 (min:sec) . 11:05:23 Inflation number: 1 The stent balloon was then re-inflated across the Prox RCA 70 to 21 KRISTY for 0:10 (min:sec) 0. 11:06:01 Inflation number: 2 The stent balloon was then re-inflated across the Mid RCA to 17 KRISTY for 0:10 (min:sec) . 11:06:50 Stent catheter was removed intact over wire. 11:07:10 Wire removed. 11:08:06 Place stent Inflation Number: 2 A DALE RX 3.5 x 15 stent ([id number]) was prepped and advanced across the Prox RCA 70. The stent was deployed at 21 KRISTY for 0:10 (min:sec) 0. 11::21 Stent catheter was removed intact over wire. 11::22 Wire removed. :23 Guide catheter removed. ::30 EXOSEAL 6Fr (EX600) opened to sterile field. 11:09:41 Sheath removed intact; hemostasis achieved with Exoseal to the Right Femoral artery. 11:09:43 Procedure ended.(Physican Out) 11:10:08 Fluoroscopy time 08.70 minutes. 11:10:15 Flurop Dose total: 1791 11:10:15 Fluoroscopy dose: 1791 mGy 11:10:21 Dose Area Product 59070 mGy/cm. 11:10:25 Contrast amount:Isovue 300 111ml. 11:10:27 Maximum allowable dose exceeded? No. 11:10:28 Sharps counted by scrub and verified by R.N. 11:10:30 Insertion/operative site no bleeding no hematoma. 11:10:33 Post-op/insertion site Right Femoral artery dressed using a 4 x 4 and Tegaderm. 11:10:36 Post right femoral artery:stable 11:10:38 Post Procedure Pulses reassessed and unchanged 11:10:43 Post procedure rhythm: unchanged. 11:10:45 Estimated blood loss: 5 ml 11:10:47 Post procedure instruction explained to patient.Patient verbalizes understanding. 11:10:47 Patient needs reinforcement of post procedure teaching. 11:11:17 Procedure type changed to Cath procedure, Diagnostic procedure, LHC, LHC w/Coronaries w/Grafts, FFR/IVUS, FFR Initial, FFR Additional, Sedation Charges, Moderate Sedation up to 30 minutes, PCI procedure, Coronary Stent, Coronary Stent Initial x2, Hemochron ACT Test 11:11:18 Procedure and supply charges have been captured, reviewed, submitted and are correct. 11:11:22 Procedure Complication : No complications 11:11:24 Vital chart was stopped 11:11:26 [facility] Findings: MVD- PCI performed (see procedure note) 11:11:28 Operative report dictated upon procedure completion. 11:11:29 See physician's report for complete and final results. 11:11:32 Report given to Pre/Post Procedure Room. 11:11:35 Patient transfered to Pre/Post Procedure Room with Stretcher. 11:11:39 Procedure ended. 11:11:39 Full Disclosure recording stopped 11:11:51 ACC-PCI Only Patient was given prescriptions, or instructed by Jak Mtz MD to start/continue the following medications upon discharge: Plavix 11:11:52 End room use (Document Last) 11:14:20 End room use (Document Last) 11:15:17 End room use (Document Last) Intervention Summary Intervention Notes Time ActionType Lesion and Equipment Used Action# Pressure Duration Attributes 10:55:18 Place stent Aorta Left DALE RX 4.0 x 1 23 00:10 -> Mid CX 22 stent ([id number]) 11:04:59 Place stent Mid RCA DALE RX 3.5 x 1 21 00:10 30 stent ([id number]) 11:05:23 Reinflate Prox RCA DALE RX 3.5 x 1 21 00:10 stent 30 stent balloon ([id number]) 11:06:01 Reinflate Mid RCA DALE RX 3.5 x 2 17 00:10 stent 30 stent balloon ([id number]) 11:08:06 Place stent Prox RCA DALE RX 3.5 x 2 21 00:10 15 stent ([id number]) Device Usage Item Name Manufacture Quantity Catalog Hospital Part Current Minimal Lot# / Number Charge Number Stock Stock Serial# Code ACIST Syringe Acist 1 31732 144227 415976 159601 20 (92012) Medical Systems Inc Bag Decanter Microtek 1 2001S 213530 29904 654461 5 (2001S) Medical Inc. Medline Cath Medline 1 [id number] 727368 14177 915035 5 Pack ([id number]) ACIST Hand Acist 1 85115 532002 735766 868213 5 Control Medical (50604) Systems Inc ACIST Manifold Acist 1 60641 152230 973652 610563 5 (60890) Medical Systems Inc DIAGNOSTIC Cardinal 1 [id number] 495660 60979 765872 30 Multipack 5Fr Health catheter set ([id number]) Tegaderm 4 x 4 3M 1 1626W 536176 422264 660774 5 (1626W) SHEATH 5FR Terumo 1 QZM244 563520 629261 959285 5 Purchase ([id number]) EMERALD Guide Cardinal 1 502-455 087307 145672 240299 5 Wire (502-500) Health MULTIPACK Cardinal 1 602657 5 Pigtail 5 Fr Health catheter MULTIPACK JL Cardinal 1 554234 5 4.0 5Fr Health catheter MULTIPACK 3DRC Cardinal 1 585439 5 5Fr catheter Health GUIDE 6FR AR Medtronic 1 [id number] 702254 27251 822521 1 2.0 catheter ([id number]) Ventura Ventura 2 77622X 945001 037487574 570266 5 Verrata Plus pressure wire (54761X) INFLATOR Merit Merit 1 [id number] 301099 883585 646933 15 BasixCompak Medical ([id number]) SHEATH 6FR Terumo 1 [id number] 836214 655061 580721 40 Purchase ([id number]) DALE RX 4.0 x Medtronic 1 [id number] 526601 2021350 384939 5 [id number] 22 stent ([id number]) GUIDE 6FR AR Medtronic 1 [id number] 817507 01368 423772 1 1.0 SH catheter ([id number]) DALE RX 3.5 x Medtronic 1 [id number] 303506 3063381 989091 5 [id number] 30 stent ([id number]) DALE RX 3.5 x Medtronic 1 [id number] 528540 7851741 922863 5 [id number] 15 stent ([id number]) EXOSEAL 6Fr Cardinal 1 EX600 813301 026008 721399 10 (EX600) Health Signature Audit [place] Stage Time Signature Unsigned Intra-Procedure 01/20/2020 Karol Patel 11:14:20 AM RT(R) Intra-Procedure 01/20/2020 Jesus Mcallister RN 11:15:17 AM Intra-Procedure 01/20/2020 Jak Mtz 11:15:40 AM Signatures Performing Physician : Jak Signature : Bibi GORE Date : Time : Monitor : Karol Patel RT Signature : Date : Time : Nurse : Toyin Schneider RN Signature : Date : Time : [place] [id number] [place] [address]
--- NOTE | ~2020-01-20 | OP ---
PATIENT NAME: DAPHNE BURKETT MEDICAL RECORD: [id number] :48 LOCATION:[facility] ADMISSION DATE: SURGEON: SKY STOUT MD DATE OF OPERATION: 01/20/2020 DATE OF SERVICE: 01/20/2020 PROCEDURES: 1. PTCA stent vein graft to left circumflex. 2. PTCA stent RCA. 3. IFR vein graft to left circumflex. 4. IFR RCA. 5. Left heart catheterization. 6. Selective coronary angiography. 7. Vein graft angiography. 8. MORALEZ angiography. INDICATION: Angina and coronary artery disease. PROCEDURE IN DETAIL: After informed consent was obtained and after a detailed description of risks, benefits as well as alternative therapies, the patient elected to proceed with angiogram and angioplasty. The right femoral area was prepped and draped in normal sterile fashion. Right femoral artery was cannulated via modified Seldinger technique with placement of 6-Sammarinese sheath. All catheters exchanged through this sheath. FINDINGS: Left ventriculogram was performed in standard 30-degree ALMAGUER view, reveals good cardiac wall motion, ejection fraction 50% to 55%. There is a gradient of 40 mm across the aortic valve. SELECTIVE CORONARY ANGIOGRAPHY: 1. Left main is with no significant angiographic disease. 2. Left anterior descending is totally occluded. 3. Left circumflex is totally occluded. 4. MORALEZ to the LAD is widely patent. 5. Vein graft to the circumflex in a skipped fashion OM1 and OM2 is patent; however, there is a 70% stenosis in the mid vessel and IFR was abnormal. 6. The right coronary has multiple previously placed stents. There is greater than 80% in-stent restenosis and IFR was abnormal. PTCA STENT OF THE VEIN GRAFT TO CIRCUMFLEX: The stent used is a 4.0 x 22 mm Alex. Result was 0% residual stenosis. PTCA STENT OF THE RCA: Stents used were 3.5 x 30 and 3.5 x 15, both [place] stents. Result was 0% residual stenosis. OVERALL IMPRESSION: Successful percutaneous transluminal coronary angioplasty stent of the vein graft to the circumflex as well as the [place] right coronary artery going from 70% to 80% initial stenosis with abnormal IFR on both to 0% residual stenosis. TRANSINT:[id number] Voice Confirmation ID: [id number] DOCUMENT ID: [id number] OPERATIVE REPORT [id number] KWADWODAPHNE PARK JEFFREY MD CC: [id number] DICTATION DATE: 01/20/20 1113 GENERAL INTERNIST: 01/20/20 1125 REG [facility] [address] [id number]
[2020-01-20] MEDS ORDERED: HYDROCODON-ACE1 EA10 PO (08:43)
[2020-01-20 08:52] VITALS: BP 156/74; Ht 172.7 cm; Wt 110.0 kg
[2020-01-20 09:00] LABS: BASOPHILS 0.7 % (0-2); EOSINOPHILS 3.3 % (0-7); HEMATOCRIT 41.6 % (42.0-54.0); HEMOGLOBIN 13.6 g/dL (13.5-17.5); IMMATURE GRANULOCYTES 0.2 % (0-5); LYMPHOCYTES 26.6 % (15-50); MCH 29.1 pg (26.0-34.0); MCHC 32.7 g/dL (31.0-37.0); MCV 89.1 fL (80.0-100.0); MEAN PLATELET VOLUME 11.7 fL (7.4-10.4); MONOCYTES 8.9 % (2-11); NEUTROPHILS 60.3 % (40-80); PLATELET COUNT 167 10x3/uL (130-400); RBC 4.67 10x6/uL (4.20-6.10); RDW 13.5 % (11.5-14.5); WBC 6.1 10x3/uL (4.8-10.8)
[2020-01-20 09:11] LABS: ANION GAP 12.8 mmol/L (8-16); CALCIUM 9.1 mg/dL (8.5-10.1); CARBON DIOXIDE 29.6 mmol/L (21.0-32.0); CHOL - HDL RATIO 5.6 ratio (2.3-4.9); CREATININE - SERUM 1.1 mg/dL (0.6-1.3); LDL-HDL RATIO 2.8 ratio (1.5-3.5); POTASSIUM - SERUM 4.4 mmol/L (3.5-5.1)
--- NOTE | 2020-01-20 11:25 | NUR ---
PT ARRIVED BY STRETCHER. PLACED ON MONITORS. ASSESSMENT COMPLETED. VSS.
--- NOTE | 2020-01-20 11:40 | NUR ---
PT RESTING COMFORTABLY. VSS. RIGHT GROIN DRESSING C/D/I. NO S/S OF HEMATOMA NOTED. VSS. CALL LIGHT WITHIN REACH.
--- NOTE | 2020-01-20 12:10 | NUR ---
RIGHT GROIN DRESSING C/D/I. NO S/S OF HEMATOMA NOTED. CALL LIGHT WITHIN REACH. VSS AT THIS TIME.
--- NOTE | 2020-01-20 12:40 | NUR ---
PT RESTING COMFORTABLY. VSS. RIGHT GROIN DRESSING C/D/I. NO S/S OF HEMATOMA NOTED.
--- NOTE | 2020-01-20 12:53 | NUR ---
CALLED AND SPOKE WITH PT'S . UPDATED HER ON PT'S STATUS. INFORMED HER OF DISCHARGE TIME.
--- NOTE | 2020-01-20 13:30 | NUR ---
RIGHT GROIN DRESSING C/D/I. NO S/S OF HEMATOMA NOTED. CALL LIGHT WITHIN REACH. VSS. NO NEEDS AT THIS TIME.
--- NOTE | 2020-01-20 14:00 | NUR ---
RIGHT GROIN DRESSING C/D/I. NO S/S OF HEMATOMA NOTED. CALL LIGHT WITHIN REACH. PT'S HEAD OF BED INC TO 30 DEGREES. TOLERATED WELL. SET UP WITH SANDWICH TRAY AND DRINK.
--- NOTE | 2020-01-20 14:30 | NUR ---
RIGHT GROIN DRESSING C/D/I. NO S/S OF HEMATOMA NOTED. PIV D/C'D WITH CATH TIP INTACT. TOLERATED WELL. PT INSTRUCTED TO GET UP AND DRESSED AT THIS TIME. NO ASSISTANCE NEEDED.
--- NOTE | 2020-01-20 14:45 | NUR ---
PT AMBULATED TO RESTROOM. VOIDED WITHOUT DIFFICULTY. DISCUSSED DISCHARGE INSTRUCTIONS WITH PT. HE VOICED UNDERSTANDING.
--- NOTE | 2020-01-20 15:00 | NUR ---
PT TAKEN DOWN TO VEHICLE BY WHEELCHAIR. NO S/S OF DISTRESS NOTED. ALL BELONGINGS AND PAPERWORK IN HAND. DISCUSSED DISCHARGE INSTRUCTIONS WITH PT'S . SHE VOICED UNDERSTANDING.
== END 2020-01-20 15:00 | disposition home or self-care (01) ==
LOC: D.CATH 08:05
PROVIDERS: ATTEND Internal Medicine Interventional Cardiology
DX: I25.119 Atherosclerotic heart disease of native coronary artery with unspecified angina pectoris (principal); E11.9 Type 2 diabetes mellitus without complications; E78.5 Hyperlipidemia, unspecified; Z79.84 Long term (current) use of oral hypoglycemic drugs; I50.9 Heart failure, unspecified; I35.0 Nonrheumatic aortic (valve) stenosis
CPT/HCPCS: 93459; 93571; 93572; C9604; C9600